=== PATIENT | male | born 1975 | race Caucasian/White ===

== ENCOUNTER 2019-08-22 19:42 | Inpatient (IN) | payer OTHER ==
[2019-08-22 20:37] LABS: Absolute Lymphocytes (CBC) 1.9 K/uL (0.7-4.9); Basophils % 0.5 % (0-1.3); Hematocrit 46.2 % (39.6-49.0); Lymphocytes % 16.5 % (15.3-44.8); Protime INR 1.09; RBC Red Blood Cell Count 5.16 M/uL (4.33-5.43)
--- NOTE | 2019-08-22 20:53 | RAD REPORT ---
EXAM DESCRIPTION: RAD - Chest Single View - 08/22/2019 8:37 pm CLINICAL HISTORY: CHEST PAIN Chest pain. COMPARISON: No comparisons FINDINGS: Portable technique limits examination quality. The lungs are grossly clear. The heart is normal in size. No displaced fractures. IMPRESSION: No acute intrathoracic process suspected.
[2019-08-22 20:58] LABS: Albumin 3.9 g/dL (3.4-5.0); Bilirubin Direct 0.2 mg/dL (0-0.2); Bilirubin Total 0.7 mg/dL (0.2-1.0); Magnesium 2.3 mg/dL (1.8-2.4); Potassium 3.8 mmol/L (3.5-5.1); Protein, Total 7.5 g/dL (6.4-8.2)
[2019-08-22 21:06] LABS: Troponin (Emerg Dept Use Only) 13.8 ng/mL (0.0-0.045)
--- NOTE | 2019-08-22 21:25 | ER ---
Nurse's Notes [facility] Name: Aubrey Vázquez Age: 43 yrs Sex: Male : 1975 Arrival Date: 08/22/2019 Time: 19:49 Bed 26 Private MD: Diagnosis: Non-ST elevation (NSTEMI) myocardial infarction Presentation: 08/21 20:07 Acuity: KIYA 3 sg 20:07 Chief complaint: Patient states: Wendy been having this chest pain for about a week, It sg worsens when I eat so i think its like reflux related, My gf told me to get this checked out if its my heart. I think maybe its a hiatal hernia or something, I dont know. Coronavirus screen: Proceed with normal triage. Initial Sepsis Screen: Does the patient meet any 2 criteria? HR > 90 bpm. Does the patient have a suspected source of infection? No. Patient's initial sepsis screen is negative. Onset of symptoms was August 15, 2019. Care prior to arrival: None. Transition of care: patient was not received from another setting of care. 20:07 Method Of Arrival: Ambulatory sg 23:17 Chief complaint: Patient states: CP for 1 week, severe last night. Coronavirus screen: ll1 Proceed with normal triage. Patient denies a cough. Patient denies shortness of breath or difficulty breathing. Patient denies measured and/or subjective temperature greater than 100.4F prior to today's visit. Patient denies travel on a cruise ship or to a country the [facility] currently lists as an affected area. Patient denies contact with known and/or suspected case of COVID-19. Ebola Screen: Patient denies travel to an Ebola-affected area in the 21 days before illness onset. Initial Sepsis Screen: Does the patient meet any 2 criteria? HR > 90 bpm. No. Patient's initial sepsis screen is negative. Does the patient have a suspected source of infection? No. Patient's initial sepsis screen is negative. Risk Assessment: Do you want to hurt yourself or someone else? Patient reports no desire to harm self or others. Onset of symptoms was August 15, 2019. 23:17 Method Of Arrival: Ambulatory ll1 Historical: - Allergies: 20:12 No Known Allergies; sg - Home Meds: 20:12 Metformin Oral [Active]; Glimepiride Oral [Active]; Lisinopril Oral [Active]; sg atorvastatin oral oral [Active]; - PMHx: 20:12 Diabetes - NIDDM; Hypertension; Hyperlipidemia; sg - PSHx: 20:12 None; sg - Immunization history:: Adult Immunizations up to date. - Social history:: Smoking status: Patient denies any tobacco usage or history of. Screenin:10 Abuse screen: Denies threats or abuse. Nutritional screening: No deficits noted. ll1 Tuberculosis screening: No symptoms or risk factors identified. Fall Risk None identified. IV access (20 points). Total [place] Fall Scale indicates No Risk (0-24 pts). Assessment: 20:30 General: Appears in no apparent distress. Behavior is calm, cooperative. Pain: ll1 Complains of pain in chest Pain does not radiate. Pain currently is 4 out of 10 on a pain scale. Quality of pain is described as pressure, "discomfort" Pain began 1 week ago intermittently. Pain got severe last night. Neuro: No deficits noted. Cardiovascular: Reports chest pain, Heart tones S1 S2 Capillary refill < 3 seconds Clubbing of nail beds is absent JVD is absent Patient's skin is warm and dry. Rhythm is sinus tachycardia Chest pain is described as vague, mild, quality is pressure, began 1 week episodes are intermittent. Respiratory: No deficits noted. Airway is patent Trachea midline Respiratory effort is even, unlabored, Respiratory pattern is regular, symmetrical, Breath sounds are clear bilaterally. Denies cough, shortness of breath. GI: No deficits noted. 21:30 Reassessment: Patient appears in no apparent distress at this time. No changes from ll1 previously documented assessment. Patient and/or family updated on plan of care and expected duration. Pain level reassessed. Patient is alert, oriented x 3, equal unlabored respirations, skin warm/dry/pink. 22:30 Reassessment: Patient appears in no apparent distress at this time. No changes from ll1 previously documented assessment. Patient and/or family updated on plan of care and expected duration. Pain level reassessed. Patient is alert, oriented x 3, equal unlabored respirations, skin warm/dry/pink. 23:30 Reassessment: Patient appears in no apparent distress at this time. No changes from ll1 previously documented assessment. Patient and/or family updated on plan of care and expected duration. Pain level reassessed. Patient is alert, oriented x 3, equal unlabored respirations, skin warm/dry/pink. Vital Signs: 21:30 BP 155 / 82; Pulse 114; Resp 18; Pulse Ox 100% ; ll1 21:46 Weight 103.87 kg (R); ll1 21:58 BP 155 / 82; Pulse 110; Resp 19; Pulse Ox 100% ; ll1 22:58 BP 135 / 78; Pulse 115; Resp 18; Pulse Ox 100% ; ll1 23:09 BP 130 / 74; Pulse 102; Resp 17; ll1 23:28 BP 124 / 73; Pulse 95; Resp 17; Pulse Ox 96% ; Pain 0/10; ll1 23:37 BP 115 / 63; Pulse 91; Resp 18; Temp 98.3; Pulse Ox 97% ; ll1 ED Course: 19:49 Patient arrived in ED. cl3 20:01 Miguel Cervantes, LING is Primary Nurse. ll1 20:04 Parrish Mckenna MD is Attending Physician. tw4 20:08 Triage completed. sg 20:13 Arm band placed on. sg 20:30 Inserted saline lock: 20 gauge in left antecubital area, using aseptic technique. Blood ll1 collected. 20:37 XRAY Chest (1 view) In Process Unspecified. EDMS 21:05 Notified ED physician of a critical lab result(s). Troponin 13.8. lp1 21:24 Juanita Gonsales MD is Hospitalizing Provider. tw4 21:30 Patient has correct armband on for positive identification. Bed in low position. Call ll1 light in reach. Side rails up X 1. vice president of sales on. Pulse ox on. NIBP on. 23:17 No provider procedures requiring assistance completed. Patient admitted, IV remains in ll1 place. Patient maintains SpO2 saturation greater than 95% on room air. Administered Medications: 21:39 CANCELLED (order changed): GI Cocktail without - (Maalox Suspension 30 ml, sg Lidocaine Liquid 2 % 15 ml) PO once 21:57 Drug: Lovenox 1 mg/kg Route: Sub-Q; Site: left lower abdomen; ll1 23:30 Follow up: Response: No adverse reaction ll1 21:58 Drug: PlaVIX 75 mg Route: PO; ll1 23:29 Follow up: Response: No adverse reaction ll1 22:58 Drug: Metoprolol 5 mg Route: IVP; Site: left antecubital; ll1 23:09 Drug: Metoprolol 5 mg Route: IVP; Site: left antecubital; ll1 23:20 Drug: Metoprolol 5 mg Route: IVP; Site: left antecubital; ll1 23:29 Follow up: Response: No adverse reaction ll1 Outcome: 21:25 Decision to Hospitalize by Provider. tw4 23:17 Condition: stable ll1 23:17 Instructed on the need for admit. 23:40 Admitted to ICU accompanied by nurse, room ICU 6, on monitor, Report called to Gregory ll1 23:52 Patient left the ED. sg Signatures: Dispatcher [employer] EDMS Richie Montalvo RN RN sg Cecilia Carrion RN RN lp1 Parrish Mckenna MD MD tw4 Gilda Cervantes cl3 Miguel Cervantes RN RN ll1 Corrections: (The following items were deleted from the chart) 23:48 23:17 Admitted to ICU accompanied by nurse, room ICU 6, on monitor, ll1 [facility] 08/22 00:06 08/21 23:17 Admitted to ICU accompanied by nurse, room ICU 6, on monitor, Report called ll1 to Gregory ll1
--- NOTE | 2019-08-22 21:25 | EDPHYS ---
Physician Documentation [facility] Name: Aubrey Vázquez Age: 43 yrs Sex: Male : 1975 Arrival Date: 08/22/2019 Time: 19:49 Bed 26 Private MD: ED Physician Parrish Mckenna HPI: 08/21 21:21 This 43 yrs old Male presents to ER via Unassigned with complaints of Chest tw4 Pain, Chest Congestion. 22:32 The patient or guardian reports chest pain that is located primarily in the anterior tw4 chest wall. Onset: 1 week(s) ago, and became worse today, and became persistent. The pain does not radiate. Associated signs and symptoms: The patient has no apparent associated signs or symptoms. The chest pain is described as dull. Modifying factors: The symptoms are alleviated by nothing. the symptoms are aggravated by nothing. The patient has not experienced similar symptoms in the past. Historical: - Allergies: 20:12 No Known Allergies; sg - Home Meds: 20:12 Metformin Oral [Active]; Glimepiride Oral [Active]; Lisinopril Oral [Active]; sg atorvastatin oral oral [Active]; - PMHx: 20:12 Diabetes - NIDDM; Hypertension; Hyperlipidemia; sg - PSHx: 20:12 None; sg - Immunization history:: Adult Immunizations up to date. - Social history:: Smoking status: Patient denies any tobacco usage or history of. ROS: 22:32 Constitutional: Negative for fever, chills, and weight loss, Eyes: Negative for injury, tw4 pain, redness, and discharge, Neck: Negative for injury, pain, and swelling, Respiratory: Negative for shortness of breath, cough, wheezing, and pleuritic chest pain, Abdomen/GI: Negative for abdominal pain, nausea, vomiting, diarrhea, and constipation, Back: Negative for injury and pain, MS/Extremity: Negative for injury and deformity, Skin: Negative for injury, rash, and discoloration, Neuro: Negative for headache, weakness, numbness, tingling, and seizure. 22:32 Cardiovascular: Positive for chest pain, Negative for edema, orthopnea, palpitations, paroxysmal nocturnal dyspnea. Exam: 22:32 Constitutional: This is a well developed, well nourished patient who is awake, alert, tw4 and in no acute distress. Head/Face: Normocephalic, atraumatic. Chest/axilla: Normal chest wall appearance and motion. Nontender with no deformity. No lesions are appreciated. Cardiovascular: Regular rate and rhythm with a normal S1 and S2. No gallops, murmurs, or rubs. Normal PMI, no JVD. No pulse deficits. Respiratory: Lungs have equal breath sounds bilaterally, clear to auscultation and percussion. No rales, rhonchi or wheezes noted. No increased work of breathing, no retractions or nasal flaring. Abdomen/GI: Soft, non-tender, with normal bowel sounds. No distension or tympany. No guarding or rebound. No evidence of tenderness throughout. Back: No spinal tenderness. No costovertebral tenderness. Full range of motion. MS/ Extremity: Pulses equal, no cyanosis. Neurovascular intact. Full, normal range of motion. Neuro: Awake and alert, GCS 15, oriented to person, place, time, and situation. Cranial nerves II-XII grossly intact. Motor strength 5/5 in all extremities. Sensory grossly intact. Cerebellar exam normal. Normal gait. Vital Signs: 21:30 BP 155 / 82; Pulse 114; Resp 18; Pulse Ox 100% ; ll1 21:46 Weight 103.87 kg (R); ll1 21:58 BP 155 / 82; Pulse 110; Resp 19; Pulse Ox 100% ; ll1 22:58 BP 135 / 78; Pulse 115; Resp 18; Pulse Ox 100% ; ll1 23:09 BP 130 / 74; Pulse 102; Resp 17; ll1 23:28 BP 124 / 73; Pulse 95; Resp 17; Pulse Ox 96% ; Pain 0/10; ll1 23:37 BP 115 / 63; Pulse 91; Resp 18; Temp 98.3; Pulse Ox 97% ; ll1 MDM: 20:04 Patient medically screened. tw4 22:32 Differential diagnosis: pulmonary embolus, unstable angina. Data reviewed: vital signs, tw4 nurses notes. Data interpreted: Pulse oximetry: Interpretation: normal. Counseling: I had a detailed discussion with the patient and/or guardian regarding: the historical points, exam findings, and any diagnostic results supporting the discharge/admit diagnosis. 22:43 Differential diagnosis: abnormal EKG, acute myocardial infarction, acute pericarditis, tw4 coronary artery disease esophagitis, gastritis, gastroesophageal reflux disease (GERD). HEART Score: History: Moderately Suspicious (1), ECG: Non specific repolarization disturbance / LBTB / PM (1), Age: < or = 45 years (0), Risk Factors: > or = 3 Risk factors for atherosclerotic disease (2), [Hypertension] [DM] [+ Family HX] Troponin: > or = 3 x Normal Limit (2), Total Score = 6. Test interpretation: by ED physician or midlevel provider: ECG, plain radiologic studies. 22:47 Physician consultation: Juanita Gonsales MD regarding admission, to the telemetry unit. tw and will see patient in ED, in inpatient room. ED course: D/W Dr Mcconnell manager respiratory care will place Plavix and Lovenox and pt will received catheterization the am. 08/21 20:04 Order name: Basic Metabolic Panel; Complete Time: 21:30 [facility] 08/21 21:30 Interpretation: Normal except: GLUC 240; GFR 79. [facility] 08/21 20:04 Order name: CBC with Diff; Complete Time: 21:30 [facility] 08/21 21:30 Interpretation: Normal except: WBC 11.6. [facility] 08/21 20:04 Order name: LFT's; Complete Time: 21:30 [facility] 08/21 21:30 Interpretation: Normal except: AST 78; GLOB 3.6. 08/21 20:04 Order name: Magnesium; Complete Time: 21:20 [facility] 08/21 20:04 Order name: NT PRO-BNP; Complete Time: 21:30 [facility] 08/21 21:30 Interpretation: Abnormal: NT PRO-BNP 1997. 08/21 20:04 Order name: PT-INR; Complete Time: 21:30 [facility] 08/21 21:30 Interpretation: Within normal limits: PT 12.8. [facility] 08/21 20:04 Order name: Troponin (emerg Dept Use Only); Complete Time: 21:20 [facility] 08/21 21:31 Interpretation: Abnormal: TROPED 13.80. 08/21 21:30 Order name: Creatine Phosphokinase [facility] 08/21 21:30 Order name: Creatine Phosphokinase [facility] 08/21 21:30 Order name: Creatine Phosphokinase [facility] 08/21 21:30 Order name: Creatine Phosphokinase [facility] 08/21 21:30 Order name: Lipid Profile [facility] 08/21 21:30 Order name: Lipid Profile [facility] 08/21 21:30 Order name: Troponin I [facility] 08/21 20:04 Order name: XRAY Chest (1 view); Complete Time: 21:20 tw4 08/21 20:04 Order name: EKG; Complete Time: 20:05 tw4 08/21 20:04 Order name: Cardiac monitoring; Complete Time: 20:30 tw4 08/21 21:30 Order name: Troponin I [facility] 08/21 21:30 Order name: Troponin I [facility] 08/21 21:31 Order name: CONS Physician Consult [facility] 08/21 21:31 Order name: Heart Healthy [facility] 08/21 21:31 Order name: Echo with Doppler [facility] 08/21 21:31 Order name: EKG Electrocardiogram [facility] 08/21 21:31 Order name: EKG Electrocardiogram [facility] 08/21 21:31 Order name: EKG Electrocardiogram [facility] 08/21 21:31 Order name: EKG Electrocardiogram [facility] 08/21 20:04 Order name: EKG - Nurse/Tech; Complete Time: 20:30 tw4 08/21 20:04 Order name: IV Saline Lock; Complete Time: 20:06 tw4 08/21 20:04 Order name: Labs collected and sent; Complete Time: 20:06 tw4 08/21 20:04 Order name: O2 Per Protocol; Complete Time: 20:06 tw4 08/21 20:04 Order name: O2 Sat Monitoring; Complete Time: 20:06 4 EC:32 Rate is 109 beats/min. Rhythm is regular. Left axis deviation noted. [place] interval is tw4 normal. QRS interval is normal. QT interval is normal. No Q waves. T waves are Inverted in leads I, aVL. No ST changes noted. Interpreted by me. Reviewed by me. Administered Medications: 21:39 CANCELLED (order changed): GI Cocktail without - (Maalox Suspension 30 ml, sg Lidocaine Liquid 2 % 15 ml) PO once 21:57 Drug: Lovenox 1 mg/kg Route: Sub-Q; Site: left lower abdomen; ll1 23:30 Follow up: Response: No adverse reaction ll1 21:58 Drug: PlaVIX 75 mg Route: PO; ll1 23:29 Follow up: Response: No adverse reaction ll1 22:58 Drug: Metoprolol 5 mg Route: IVP; Site: left antecubital; ll1 23:09 Drug: Metoprolol 5 mg Route: IVP; Site: left antecubital; ll1 23:20 Drug: Metoprolol 5 mg Route: IVP; Site: left antecubital; ll1 23:29 Follow up: Response: No adverse reaction ll1 Disposition: 08/22/19 21:25 Hospitalization ordered by Juanita Gonsales for Inpatient Admission. Preliminary diagnosis is Non-ST elevation (NSTEMI) myocardial infarction. - Bed requested for Intensive Care Unit. - Status is Inpatient Admission. sg - Condition is Fair. - Problem is new. - Symptoms are unchanged. Signatures: Dispatcher [employer] EDRichie Epperson RN RN sg Sadia Bazzi RN RN Parrish Mckenna MD MD 4 Miguel Cervantes RN RN ll1 Corrections: (The following items were deleted from the chart) 21:39 20:45 GI Cocktail without - (Maalox 30 ml, Lidocaine 15 ml) PO once ordered. sg tw4 21:59 21:25 Hospitalization Ordered by Juanita Gonsales MD for Inpatient Admission. Preliminary cg diagnosis is Non-ST elevation (NSTEMI) myocardial infarction. Bed requested for Telemetry/MedSurg (Inpatient). Status is Inpatient Admission. Condition is Fair. Problem is new. Symptoms are unchanged. tw4 23:52 21:59 08/22/2019 21:25 Hospitalization Ordered by Juanita Gonsales MD for Inpatient sg Admission. Preliminary diagnosis is Non-ST elevation (NSTEMI) myocardial infarction. Bed requested for Intensive Care Unit. Status is Inpatient Admission. Condition is Fair. Problem is new. Symptoms are unchanged. cg
[2019-08-22] MEDS ORDERED: ACETAMINOPHEN 500 MG TAB PO PRN (21:26)
[2019-08-22] MEDS ORDERED: ONDANSETRON 4 MG/2 ML VIAL IV PRN (21:26)
[2019-08-22] MEDS ORDERED: MORPHINE 4 MG/ML SYR IV PRN (21:26)
[2019-08-22] MEDS ORDERED: METOPROLOL TARTRATE 5 MG/5 ML INJ IV ONE (23:04)
[2019-08-23 01:24] VITALS: BMI 33.1
[2019-08-23] MEDS: ENOXAPARIN 100 MG/ML SYR SQ SCH ×3 (02:00→14:00)
[2019-08-23] MEDS: TEMAZEPAM 15 MG CAP PO PRN ×2 (02:11→21:15)
[2019-08-23 05:54] LABS: Creatine Phosphokinase 279 U/L (39-308); HDL Cholesterol 29 mg/dL (40-60)
[2019-08-23 05:57] LABS: Troponin I 8.65 ng/mL (0.0-0.045)
[2019-08-23 06:07] LABS: LDL, Direct 77 mg/dL (100-129)
[2019-08-23] MEDS ORDERED: HEPA 1000U/500MLS 1,000 UNIT/500 ML BAG IV ONE (06:45)
--- NOTE | 2019-08-23 07:19 | P.HP ---
Certification for Inpatient Patient admitted to: Inpatient With expected LOS: >2 Midnights Patient will require the following post-hospital care: None Practitioner: I am a practitioner with admitting privileges, knowledge of patient current condition, hospital course, and medical plan of care. Services: Services provided to patient in accordance with Admission requirements found in Title 42 Section 412.3 of the Code of Federal Regulations Patient History Date of Service: 08/22/19 Reason for admission: Acute myocardial infarction History of Present Illness: Patient is a 43-year-old gentleman came into the hospital with chest discomfort. His pain is been present for the last 3-4 days. Initially thought it may be hiatal hernia as his mother suffer from a hiatal hernia. His father also had heart disease and had a heart attack at 44yo which required bypass surgery. Patient's chest pain was improving so his girlfriend made him come into the em ergency room. In the emergency room, patient's troponins came back significantly elevated. Patient had no acute ST elevation changes. Patient was started on anti coagulation as well as anti-platelet therapy and statin therapy. Patient is given Lopressor. Patient was admitted to the hospital after speak with Cardiology and will need cardiac catheterization. Allergies No Known Allergies Allergy (Verified 08/23/19 00:11) Home Medications: Atorvastatin Calcium [Lipitor*] 10 mg PO BEDTIME 08/23/19 Glimepiride 4 mg PO DAILY 08/23/19 Metformin HCl 1,000 mg PO DAILY 08/23/19 lisinopriL [Lisinopril] 10 mg PO DAILY 08/23/19 - Past Medical/Surgical History Has patient received pneumonia vaccine in the past: No Diabetic: Yes -: NIDDM -: HTN -: hyperlipidemia Past Surgical History: Patient denies surgical history - Family History Father Family History: Reviewed- Non-Contributory - Social History Smoking Status: Never smoker Alcohol use: Yes CD- Drugs: No Caffeine use: Yes Place of Residence: Home Review of Systems 10-point ROS is otherwise unremarkable Physical Examination - Vital Signs Temperature: 98.3 F Blood Pressure: 114/87 Pulse: 95 Respirations: 19 Pulse Ox (%): 96 - Physical Exam General: Alert, In no apparent distress, Oriented x3 HEENT: Atraumatic, PERRLA, Mucous membr. moist/pink, EOMI, Sclerae nonicteric Neck: Supple, 2+ carotid pulse no bruit, No LAD, Without JVD or thyroid abnormality Respiratory: Clear to auscultation bilaterally, Normal air movement Cardiovascular: Regular rate/rhythm, Normal S1 S2, No murmurs Gastrointestinal: Normal bowel sounds, Soft and benign, Non-distended, No tend erness Musculoskeletal: No clubbing, No swelling, No tenderness Integumentary: No rashes Neurological: Normal gait, Normal speech, Normal strength at 5/5 x4 extr, Normal tone, Sensation intact, Cranial nerves 3-12 intact, Normal affect Lymphatics: No axilla or inguinal lymphadenopathy - Studies Laboratory Data (last 24 hrs) 08/22/19 19:30: PT 12.8 H, INR 1.09 08/22/19 19:30: WBC 11.6 H, Hgb 15.8, Hct 46.2, Plt Count 208 08/22/19 19:30: Sodium 140, Potassium 3.8, BUN 16, Creatinine 1.02, Glucose 240 H, Magnesium 2.3, Total Bilirubin 0.7, AST 78 H, ALT 69, Alkaline Phosphatase 66 Assessment & Plan - Problems (Diagnosis) (1) Coronary syndrome, acute Current Visit: Yes Status: Acute (2) Type 2 diabetes mellitus Current Visit: Yes Status: Acute (3) History of hypertension Current Visit: Yes Status: Acute (4) Family history of cardiac disorder in father Current Visit: Yes Status: Acute - Plan 1. Serial troponins and EKG 2. Appreciate Cardiology consultation; patient scheduled for cardiac catheterization in the morning 3. Echocardiogram in the morning as well 4. Anti-platelet therapy, anti coagulation, beta-sera, statin, and O2 as needed; if chest pain persistent than nitropaste 5. IV morphine for pain 6. Nitro sublingual as needed 7. Hemoglobin A1c in the morning 8. Strict blood pressure control 9. GI and DVT prophylaxis Discharge Plan: Home Plan to discharge in: Greater than 2 days - Advance Directives Does patient have a Living Will: No Does patient have a Durable POA for Healthcare: No - Code Status/Comfort Care Code Status Assessed: Yes Code Status: Full Code Critical Care: Yes Time Spent Managing PTS Care (In Minutes): 45
--- NOTE | 2019-08-23 07:24 | P.PN ---
Subjective Date of Service: 08/23/19 Patient still having occasional chest discomfort. Scheduled for heart catheterization this morning. Continue with anticoagulation, anti-platelet therapy, beta sera, and statin therapy as well. Patient will remain NPO as well. Review of Systems 10-point ROS is otherwise unremarkable Physical Examination - Vital Signs Temperature: 98.3 F Blood Pressure: 114/87 Pulse: 95 Respirations: 19 Pulse Ox (%): 96 - Physical Exam General: Alert, In no apparent distress, Oriented x3 Respiratory: Clear to auscultation bilaterally, Normal air movement Cardiovascular: Regular rate/rhythm, Normal S1 S2, No murmurs Gastrointestinal: Normal bowel sounds, Soft and benign, Non-distended, No tenderness, No masses, No rebound Musculoskeletal: No clubbing, No swelling, No erythema Neurological: Normal gait, Normal speech, Normal strength at 5/5 x4 extr, Normal tone, Sensation intact, Cranial nerves 3-12 intact - Studies Laboratory Data (last 24 hrs) 08/22/19 19:30: PT 12.8 H, INR 1.09 08/22/19 19:30: WBC 11.6 H, Hgb 15.8, Hct 46.2, Plt Count 208 08/22/19 19:30: Sodium 140, Potassium 3.8, BUN 16, Creatinine 1.02, Glucose 240 H, Magnesium 2.3, Total Bilirubin 0.7, AST 78 H, ALT 69, Alkaline Phosphatase 66 Assessment & Plan - Problems (Diagnosis) (1) Coronary syndrome, acute Current Visit: Yes Status: Acute (2) Type 2 diabetes mellitus Current Visit: Yes Status: Acute (3) History of hypertension Current Visit: Yes Status: Acute (4) Family history of cardiac disorder in father Current Visit: Yes Status: Acute - Plan Continue with current plan of care as mentioned below 1. Troponins are trending downward at this time 2. Appreciate Cardiology consultation; patient scheduled for cardiac catheterization today 3. Echocardiogram this morning as well 4. Continue with anti-platelet therapy, anticoagulation, beta-sera, statin, and O2 as needed; if chest pain persistent than nitropaste 5. IV morphine for pain 6. Nitro sublingual as needed 7. Hemoglobin A1c pending 8. Strict blood pressure control 9. GI and DVT prophylaxis Discharge Plan: Home Plan to discharge in: Greater than 2 days - Advance Directives Does patient have a Living Will: No Does patient have a Durable POA for Healthcare: No - Code Status/Comfort Care Code Status: Full Code Critical Care: Yes Time Spent Managing PTS Care (In Minutes): 31
[2019-08-23] MEDS ORDERED: NITROGLYCERIN 100 MCG/ML SYR (for cath lab use only) IV ONE (08:19)
[2019-08-23] MEDS ORDERED: NITROGLYCERIN/D5W 25 MG/250 ML BTL IV ONE (08:19)
[2019-08-23] MEDS ORDERED: FENTANYL CITR 100 MCG/2 ML ONE (08:19)
[2019-08-23] MEDS ORDERED: ATROPINE SULF 1 MG/10 ML SYR IV ONE (08:19)
[2019-08-23] MEDS ORDERED: MIDAZOLAM HCL 2 MG/2 ML INJ ONE ×2 (08:19→10:55)
[2019-08-23] MEDS ORDERED: NA CHLORIDE 0.9% 50 ML ONE (08:19)
[2019-08-23] MEDS ORDERED: METOPROLOL TAR 50 MG TAB PO SCH (09:00)
[2019-08-23] MEDS ORDERED: ASPIRIN 325 MG TAB PO SCH (09:00)
[2019-08-23] MEDS ORDERED: CLOPIDOGREL 75 MG TABLET PO SCH (09:00)
[2019-08-23] MEDS ORDERED: NA CHLORIDE 0.9% 500 ML ONE (10:46)
--- NOTE | 2019-08-23 10:48 | EKG ---
Test Date: 2019-08-22 Test Time: 20:29:08 Job Placement Specialist: DASHAWN MEASUREMENT RESULTS: Intervals: Rate: 109 ND: 148 QRSD: 92 QT: 340 QTc: 457 [place]: P: 44 ND: 148 QRS: -46 T: 74 INTERPRETIVE STATEMENTS: Sinus tachycardia Left axis deviation Anteroseptal infarct, age undetermined Abnormal ECG No previous ECG available for comparison Electronically Signed On 08-23-19 10:47:15 CDT by Phoenix Torres
[2019-08-23] MEDS ORDERED: ASPIRIN 325 MG TAB ONE (11:33)
[2019-08-23] MEDS ORDERED: PRASUGREL (EFFIENT) 10 MG TAB ONE (11:34)
[2019-08-23] MEDS ORDERED: DIAZEPAM 5 MG TABLET PO PRN (12:25)
[2019-08-23] MEDS ORDERED: MORPHINE 4 MG/ML SYR IV PRN (12:26)
[2019-08-23] MEDS ORDERED: NITROGLYCERIN 0.4 MG/TAB SL PRN (13:00)
[2019-08-23] MEDS ORDERED: ACETAMINOPHEN 325 MG TABLET PO PRN (13:00)
[2019-08-23] MEDS ORDERED: NA CHLORIDE 0.9% 1,000 ML IV SCH (13:00)
[2019-08-23 15:47] VITALS: O2SAT 98
[2019-08-23] MEDS ORDERED: ATORVASTATIN 20 MG TAB PO SCH (21:00)
[2019-08-23] MEDS ORDERED: ATORVASTATIN 80 MG TAB PO SCH (21:00)
--- NOTE | 2019-08-23 22:00 | OP ---
Date of Procedure: 08/23/2019 Surgeon: Phoenix Torres MD Jewelry Sorter: Roxy Loyola. The patient will be going back to the ICU for overnight stay. Hopefully, he will be going home олег brar. He is already on lisinopril, metformin, glimepiride, and Lipitor. We will have his metformin h eld for 48 hours. We will add Plavix to his regimen and we will add a low-dose beta-sera before heather webb goes home. Procedure: Urgent left heart catheterization, selective coronary arteriogram, and primary stent of t he proximal LAD. Indication: Non-ST elevation myocardial infarction. History Of Present Illness: Mr. Vázquez is a 43-year-old male, has a history of diabetes, strong fami ly history of heart disease, dyslipidemia, and hypertension. Has recently moved from [place]. Came in with substernal chest pressure radiating to the back and arm with nausea, diaphoresis, and sh ortness of breath. Symptoms intermittent for a week, but were prolonged last night on 08/22/2019. Heather webb was admitted, was found to have a troponin of 13.80. EKG showed anterior ischemic changes. Description Of Procedure: He was brought to the oil field laborer rather urgently, prepped and draped in the routine sterile fashion. He was given Versed for sedation. A 6-Yemeni sheath was introduced in the right common femoral artery successfully. Angio-Seal was used to close the case. Angiography there was normal. Jaime catheter left and right were used to cannulate the left main and right main resp ectively. His RCA was normal. His circumflex had about a 50% to 60% obtuse marginal lesion, but he had a 95% very proximal LAD with what appeared to be thrombus and calcification. A [place] wire was u sed to cross the lesion after cannulating the lesion with an XB-LAD 3.5 guide. Double 6-Yemeni. Fol lowing the wire, a 3.5 x 20 Synergy stent was introduced, it was positioned right at the ostium of th e LAD to cover the proximal LAD, the ostium all the way across the septal perforators, but before the first diagonal. He has 0% residual. There were no acute closure or thrombosis or dissection. The patient tolerated the procedure very well. There were no complications. Blood loss was 5 mL. The p atient received aspirin, Effient, and Angiomax during the procedure. Anesthesia: Total conscious sedation was 45 minutes. Final Diagnoses: Left anterior descending status post acute non-ST elevation myocardial infarction, status post successful proximal left anterior descending primary stent. Has other disease in the obt use marginal that is [id number]-[id number] that we will treat medically. FRANK/KARO Voice ID: [id number] Report ID: [id number]
--- NOTE | 2019-08-23 23:45 | CON ---
Date of Consultation: 08/23/[address] Gonsales's service on 08/22/2019. I saw the patient on 08/23/2019. Reason For Consultation: Iay-AK-nfyvkyxim myocardial infarction. History Of Present Illness: Mr. Vázquez is a 43-year-old male who just recently moved from [facility]. Has a history of diabetes, hypertension, and dyslipidemia. Has been having midsternal chest pre ssure, indigestion like, radiating to the upper chest without any nausea or vomiting, but has had keesha phoresis and shortness of breath. His symptoms lasted about an hour and a half yesterday. Finally c roseanne to the emergency room, was found to have an EKG showing possible anterior ischemia. His troponin was 13.8. His triglycerides were 557. His white count was 11. Glucose was 240. Past Medical History: As stated above. Allergies: NONE. Review of Systems: Negative. Social History: Negative for tobacco, alcohol, or drugs. Family History: Positive for heart disease. His dad had bypass surgery in his 40s. Home Medications: Lipitor, glimepiride, metformin, and lisinopril. Physical Examination: Vital Signs: Stable. He was afebrile. HEENT: Negative. Neck: Supple. No bruit. Chest: Clear. Cardiac: Revealed a regular rhythm and rate. No murmurs, gallops, or rubs. Abdomen: Benign. Extremities: Revealed no clubbing, cyanosis, or edema. Diagnostic Data: As stated earlier. Impression And Plan: Qnc-AK-dvkbphtqi myocardial infarction. I am going to take the patient urgentl y to the mini lab operator today. He needs to have a left heart catheterization to define his coronary anatom y and intervene as appropriate. Patient understands the risks and the benefits of the procedure and he agrees to proceed. Patient is on aspirin, Lovenox, lisinopril, metformin, glimepiride, and Lipito r. We will make appropriate changes depending on what the catheterization sees. His blood pressure is controlled. His diabetes is controlled. His dyslipidemia is poorly controlled. We may have to g o up on the Lipitor dose and consider Tricor therapy as well. NB/MODL Voice ID: [id number] Report ID: [id number]
--- NOTE | 2019-08-24 01:49 | P.PN ---
Date of Service: 08/23/19 Addendum to a.m. note: Subjective: Patient required LAD stent. Patient had almost complete occlusion of the proximal LAD. Patient also with additional lesion of the obtuse marginal. This will be managed medically. Patient will possibly be discharged tomorrow morning pending cardiology evaluation. Physical Examination Vitals: Afebrile vital signs are stable Physical exam is unchanged Diagnostic data has been reviewed ASST: 1. Coronary artery disease status post LAD stent 2. Type 2 diabetes PLAN: 1. Serial troponins and EKG 2. Appreciate Cardiology consultation 3. Anti-platelet therapy, anti coagulation, beta-sera, statin, and O2 as needed 4. Dc in a.m. if Cardiology agreeable
--- NOTE | 2019-08-24 01:52 | P.DS ---
Discharge Date: 08/24/19 Disposition: ROUTINE DISCHARGE Discharge Condition: GOOD Reason for Admission: Acute myocardial infarction Consultations: Cardiology - Problems (1) Coronary syndrome, acute Current Visit: Yes Status: Acute (2) Type 2 diabetes mellitus Current Visit: Yes Status: Acute (3) History of hypertension Current Visit: Yes Status: Acute (4) Family history of cardiac disorder in father Current Visit: Yes Status: Acute Brief History of Present Illness: Patient is a 43-year-old gentleman came into the hospital with chest discomfort. His pain is been present for the last 3-4 days. Initially thought it may be hiatal hernia as his mother suffer from a hiatal hernia. His father also had heart disease and had a heart attack at 44yo which required bypass surgery. Patient's chest pain was improving so his girlfriend made him come into the emergency room. In the emergency room, patient's troponins came back significantly elevated. Patient had no acute ST elevation changes. Patient was started on anti coagulation as well as anti-platelet therapy and statin therapy. Patient is given Lopressor. Patient was admitted to the hospital after speak with Cardiology and will need cardiac catheterization. Hospital Course: If patient was having an acute myocardial infarction-non ST-elevation myocardial infarction. Patient was taken to the cardiac catheterization lab per Cardiology. Patient was found have a 95% lad lesion proximally which was stented. Patient also had a 50-60% lesion in the obtuse marginal branch of this left circumflex. This will be monitored closely as an outpatient. Patient will continue on cardiac meds and will need strict diabetes control. Will recommend resuming activity including possibly cardiac rehab. At this time, patient is stable for discharge with outpatient follow-up with Cardiology in 1 week. Return to the ER if patient has chest pain that is recurrent. Vital Signs/Physical Exam: Temp Pulse Resp BP Pulse Ox 97.6 F 89 15 113/77 95 08/24/19 01:00 08/24/19 01:00 08/23/19 22:00 08/24/19 01:00 08/24/19 01:00 General: Alert, In no apparent distress, Oriented x3 Laboratory Data at Discharge: WBC 11.6 K/uL (4.3-10.9) H 08/22/19 19:30 Hgb 15.8 g/dL (13.6-17.9) 08/22/19 19:30 Hct 46.2 % (39.6-49.0) 08/22/19 19:30 Plt Count 208 K/uL (152-406) 08/22/19 19:30 PT 12.8 SECONDS (9.5-12.5) H 08/22/19 19:30 INR 1.09 08/22/19 19:30 Sodium 140 mmol/L (136-145) 08/22/19 19:30 Potassium 3.8 mmol/L (3.5-5.1) 08/22/19 19:30 BUN 16 mg/dL (7-18) 08/22/19 19:30 Creatinine 1.02 mg/dL (0.55-1.3) 08/22/19 19:30 Glucose 240 mg/dL (74-106) H 08/22/19 19:30 Magnesium 2.3 mg/dL (1.8-2.4) 08/22/19 19:30 Total Bilirubin 0.7 mg/dL (0.2-1.0) 08/22/19 19:30 AST 78 U/L (15-37) H 08/22/19 19:30 ALT 69 U/L (12-78) 08/22/19 19:30 Alkaline Phosphatase 66 U/L (45-117) 08/22/19 19:30 Troponin I 8.65 ng/mL (0.0-0.045) H* D 08/23/19 04:55 Triglycerides 557 mg/dL (<150) H 08/23/19 04:55 Cholesterol 134 mg/dL (<200) 08/23/19 04:55 LDL Cholesterol Direct 77 mg/dL (100-129) L 08/23/19 04:55 HDL Cholesterol 29 mg/dL (40-60) L 08/23/19 04:55 Cholesterol/HDL Ratio 4.62 08/23/19 04:55 Home Medications: Glimepiride 4 mg PO DAILY 08/23/19 Metformin HCl 1,000 mg PO DAILY 08/23/19 lisinopriL [Lisinopril] 10 mg PO DAILY 08/23/19 Aspirin Chewable [Aspirin Chewable*] 81 mg PO DAILY #30 tab.chew 08/24/19 Atorvastatin Calcium [Lipitor] 80 mg PO BEDTIME #30 tab 08/24/19 Clopidogrel Bisulfate [Plavix*] 75 mg PO DAILY #30 tablet 08/24/19 Metoprolol Succinate [Toprol Xl*] 25 mg PO DAILY #30 tab 08/24/19 Nitroglycerin [Nitrostat*] 1 tab.sl SL UD PRN #100 tab 08/24/19 New Medications: Aspirin Chewable [Aspirin Chewable*] 81 mg PO DAILY #30 tab.chew Atorvastatin Calcium [Lipitor] 80 mg PO BEDTIME #30 tab Nitroglycerin [Nitrostat*] 1 tab.sl SL UD PRN #100 tab PRN Reason: Pain Scale 2-4 (Mild) Clopidogrel Bisulfate [Plavix*] 75 mg PO DAILY #30 tablet Metoprolol Succinate [Toprol Xl*] 25 mg PO DAILY #30 tab Patient Discharge Instructions: OK TO DC IV AND DC HOME. FOLLOW-UP WITH PRIMARY CARE PROVIDER IN 1-2 WEEKS. FOLLOW-UP WITH CARDIOLOGY IN 1-2 WEEKS. RETURN TO THE ER IF symptoms worsen. CALL or TEXT DR. CHRISTIANSEN AT [phone] IF ANY QUESTIONS REGARDING HOSPITAL STAY. PLEASE CALL THE FLOOR AT [phone] IF ANY MEDICATION OR NURSING QUESTIONS. Diet: AHA Activity: Fall precautions Followup: hPoenix Torres MD [ACTIVE - CAN ADMIT] - 1-2 Weeks Conner Roth MD [OUTSIDE PHYSICIAN] - 1-2 Weeks Time spent managing pt's care (in minutes): 25
[2019-08-24 04:19] VITALS: TEMP 97.8
[2019-08-24 07:39] VITALS: BP 116/84
[2019-08-24] MEDS ORDERED: METOPROLOL XL 25 MG TAB PO SCH (09:00)
[2019-08-24] MEDS ORDERED: ASPIRIN 81 MG CHEWABLE TABLET PO SCH (09:00)
--- NOTE | 2019-08-24 17:11 | PN ---
Date of Progress Note: 08/24/2019 History Of Present Illness: Mr. Vázquez came in with non-ST elevation myocardial infarction yesterday , has history of hypertension, diabetes, and dyslipidemia. He was taken to the photo lab specialist urgently. Heather webb underwent a catheterization and primary stent of the proximal LAD. Overnight, he did very well. Heather webb has no complaint. Physical Examination: Vital Signs: Stable. He is afebrile. His chest was clear. Extremities: Revealed no clubbing, cyanosis, or edema. His right groin site is intact. Assessment And Plan: The patient will be going home today. He is status post acute non-ST elevation myocardial infarction status post LAD stent. He will be going home on his home medications plus Isha vix and metoprolol. His Lipitor that he takes at home was increased to 80 mg daily. He will see me in the office in the next 2 weeks. FRANK/KARO Voice ID: [id number] Report ID: [id number]
== END 2019-08-24 08:15 | disposition home or self-care (01) | DRG 247 ==
LOC: ER 19:42 → ERHOLD 21:26 → 3RD-ICU 23:40
PROVIDERS: ADMIT Hospitalist; ATTEND Hospitalist
PROC: 027034Z Dilation of Coronary Artery, One Artery with Drug-eluting Intraluminal Device, Percutaneous Approach (ICD-10-PCS; principal; 2019-08-23)
PROC: 4A023N7 Measurement of Cardiac Sampling and Pressure, Left Heart, Percutaneous Approach (ICD-10-PCS; 2019-08-23)
PROC: B2111ZZ Fluoroscopy of Multiple Coronary Arteries using Low Osmolar Contrast (ICD-10-PCS; 2019-08-23)
DX: I21.4 Non-ST elevation (NSTEMI) myocardial infarction (principal); E11.9 Type 2 diabetes mellitus without complications; I10 Essential (primary) hypertension; I25.10 Atherosclerotic heart disease of native coronary artery without angina pectoris; E78.5 Hyperlipidemia, unspecified; Z79.84 Long term (current) use of oral hypoglycemic drugs; Z79.899 Other long term (current) drug therapy; Z79.82 Long term (current) use of aspirin; Z82.49 Family history of ischemic heart disease and other diseases of the circulatory system
CPT/HCPCS: 36415; 71045; 80048; 80061; 80076; 82550; 83036; 83735; 83880; 84484; 85025; 85347; 85610; 92928; 93005; 93454; 96372; 96374; 99285; C1725; C1760; C1877; C1893; J0583; J1650; J2250; J3010; J7040

== ENCOUNTER 2024-08-19 21:48 | Emergency (ER) | payer BC, OTHER ==
--- NOTE | 2024-08-19 22:30 | RAD REPORT ---
EXAM: Chest Single View HISTORY: 48 years Male CHEST PAIN COMPARISON: 08/22/19 FINDINGS: LUNGS/PLEURA: The lungs are clear. No pleural effusions or pneumothorax. No pulmonary edema. CARDIAC/MEDIASTINUM: The cardiac silhouette is within normal limits. UPPER ABDOMEN: No significant abnormality. BONES: No acute abnormality. LINES/TUBES/OTHER: N/A IMPRESSION: No evidence of acute cardiopulmonary disease.
[2024-08-19] MEDS ORDERED: ASPIRIN 81 MG CHEWABLE TABLET ONE (23:07)
[2024-08-19 23:12] LABS: Absolute Basophils 0.1 K/uL (0-0.5); Absolute Eosinophils 0.2 K/uL (0-0.5); Absolute Lymphocytes (CBC) 1.8 K/uL (0.7-4.9); Absolute Monocytes 0.8 K/uL (0.1-1.3); Absolute Neutrophil 5.5 K/uL (1.8-8.0); Basophils % 0.6 % (0-1.3); Eosinophils % 2.5 % (0-4.4); Hematocrit 47.6 % (39.6-49.0); Hemoglobin 16.4 g/dL (13.6-17.9); MCHC 34.4 g/dL (32.0-36.0); MPV 8.4 fL (7.6-11.3); Monocytes % 9.1 % (3.3-12.3); Neutrophils % 65.8 % (41.7-73.7); Nucleated Red Blood Cells % 0.1 % (0-0); Platelets 182 thou/uL (152-406); RBC Red Blood Cell Count 5.29 M/uL (4.33-5.43); Red Cell Distribution Width 12.9 % (12.1-15.2)
[2024-08-19 23:27] LABS: Albumin 3.8 g/dL (3.4-5.0); Anion Gap 8.1 mEq/L (5.0-15.0); Bilirubin Direct 0.2 mg/dL (0-0.2); Bilirubin Indirect, Calculated 0.4 mg/dL (0.2-0.8); Bilirubin Total 0.6 mg/dL (0.2-1.0); Globulin 3.8 g/dL (2.3-3.5); Magnesium 2.3 mg/dL (1.6-2.4); Potassium 4.1 mEq/L (3.5-5.1); Protein, Total 7.6 g/dL (6.4-8.2); Troponin High Sensitivity 3.8 pg/mL (<58.9)
--- NOTE | 2024-08-20 01:06 | ER ---
Nurse's Notes [facility] Name: Aubrey Vázquez Age: 48 yrs Sex: Male : 1975 Arrival Date: 08/19/2024 Time: 21:48 Bed 6 Private MD: Diagnosis: Chest pain, unspecified;Essential (primary) hypertension Presentation: 08/19 22:10 Chief complaint: Patient states: chest pain X 90 minutes, radiates to left shoulder, hx iw of MA 5 years ago. Coronavirus screen: At this time, the client does not indicate any symptoms associated with coronavirus-19. Ebola Screen: No symptoms or risks identified at this time. Initial Sepsis Screen: Does the patient meet any 2 criteria? No. Patient's initial sepsis screen is negative. Does the patient have a suspected source of infection? No. Patient's initial sepsis screen is negative. Risk Assessment: Do you want to hurt yourself or someone else? Patient reports no desire to harm self or others. Onset of symptoms was August 19, 2024. 22:10 Acuity: KIYA 2 iw 22:10 Method Of Arrival: Ambulatory iw Historical: - Allergies: 22:11 No Known Allergies; iw - PMHx: 22:11 Diabetes - NIDDM; Hyperlipidemia; Hypertension; Myocardial infarction; iw - PSHx: 22:11 cardiac stents; iw - Immunization history:: Adult Immunizations unknown. - Infectious Disease History:: Denies. - Social history:: Smoking status: unknown. Screenin:29 [facility] ED Fall Risk Assessment (Adult) History of falling in the last 3 months, ha1 including since admission No falls in past 3 months (0 pts) Confusion or Disorientation No (0 pts) Intoxicated or Sedated No (0 pts) Impaired Gait No (0 pts) Mobility Assist Device Used No (0 pt) Altered Elimination No (0 pt) Score/Fall Risk Level 0 - 2 = Low Risk Oriented to surroundings, Maintained a safe environment, Educated pt \T\ family on fall prevention, incl call for assistance when getting out of bed, Hourly rounding (assess needs \T\ fall precautionary measures) done. Abuse screen: Denies threats or abuse. Denies injuries from another. Nutritional screening: No deficits noted. Tuberculosis screening: No symptoms or risk factors identified. Assessment: 22:30 General: Appears comfortable, Behavior is calm, cooperative. Pain: Complains of pain in ha1 chest Pain radiates to left arm Pain currently is 3 out of 10 on a pain scale. Quality of pain is described as pressure, Pain began suddenly. Cardiovascular: Reports chest pain, Heart tones S1 S2 present Rhythm is sinus tachycardia. Respiratory: Airway is patent Trachea midline Respiratory effort is even, unlabored, Respiratory pattern is regular, symmetrical. GI: Abdomen is round non-distended, obese. : No signs and/or symptoms were reported regarding the genitourinary system. 23:25 Reassessment: Patient and/or family updated on plan of care and expected duration. Pain rg5 level reassessed. Patient is alert, oriented x 3, equal unlabored respirations, skin warm/dry/pink. Patient states feeling better. 08/20 00:42 Reassessment: Patient and/or family updated on plan of care and expected duration. Pain rg5 level reassessed. Patient is alert, oriented x 3, equal unlabored respirations, skin warm/dry/pink. Patient states symptoms have improved. Vital Signs: 08/19 22:10 BP 129 / 91; Pulse 125; Resp 19; Temp 97.4; Pulse Ox 100% on R/A; Weight 97.52 kg; iw Height 5 ft. 10 in. ; Pain 3/10; 22:56 BP 147 / 91; Pulse 116; Resp 18 S; Pulse Ox 94% on R/A; ha1 08/20 00:00 BP 139 / 84; Pulse 112; Resp 18 S; Pulse Ox 95% on R/A; ha1 01:00 BP 125 / 67; Pulse 110; Resp 18; Pulse Ox 96% on R/A; ha1 08/19 22:10 Body Mass Index 30.85 (97.52 kg, 177.8 cm) iw 08/19 22:10 Pain Scale: Adult iw ED Course: 08/19 21:52 Patient arrived in ED. im 22:00 Shayne Mayes DO is Attending Physician. ms3 22:10 Patient has correct armband on for positive identification. Placed in gown. Bed in low ha1 position. Call light in reach. Side rails up X 1. Adult w/ patient. 22:10 Client placed on continuous cardiac and pulse oximetry monitoring. NIBP monitoring ha1 applied. environmental monitoring specialist on. 22:11 Triage completed. iw 22:12 Arm band placed on. Patient placed in waiting room. EKG completed in triage. Results iw shown to MD. 22:26 XRAY Chest (1 view) In Process Unspecified. EDMS 22:45 Inserted saline lock: 20 gauge in right antecubital area, using aseptic technique. ha1 Blood collected. Flushed with 10 mL NS. 22:53 Basic Metabolic Panel Sent. ha1 22:53 CBC with Diff Sent. ha1 22:53 LFT's Sent. ha1 22:53 Magnesium Sent. ha1 22:53 NT PRO-BNP Sent. ha1 22:53 Troponin HS Sent. ha1 23:02 Sarah Moser, RN is Primary Nurse. ha1 23:25 No provider procedures requiring assistance completed. Patient maintains SpO2 rg5 saturation greater than 95% on room air. 08/20 01:06 Kiran Piña MD is Referral Physician. ms3 01:31 IV discontinued, intact, bleeding controlled, No redness/swelling at site. Pressure ha1 dressing applied. Administered Medications: 08/19 23:29 Drug: Aspirin PO Chewable Tablet 324 mg PO once; 81 mg tablets x 4 Route: PO; ha1 08/20 00:00 Follow up: Response: No adverse reaction; Marked relief of symptoms; Pain is decreased ha1 Medication: 08/19 23:25 VIS not applicable for this client. rg5 Outcome: 08/20 01:06 Discharge ordered by . ms3 01:22 Condition: stable ha1 01:31 Discharged to home ambulatory, ha1 01:31 Discharge instructions given to patient, Instructed on discharge instructions, follow up and referral plans. Demonstrated understanding of instructions, follow-up care, 01:32 Patient left the ED. ha1 Signatures: Dispatcher [employer] Jaida José, RN RN Shayne Jackson DO DO ms3 Sarah Moser RN RN ha1 Paulina Thacker Rommel RN RN rg5
--- NOTE | 2024-08-20 01:07 | EDPHYS ---
Physician Documentation [facility] Name: Aubrey Vázquez Age: 48 yrs Sex: Male : 1975 Arrival Date: 08/19/2024 Time: 21:48 Bed 6 Private MD: ED Physician Shayne Mayes HPI: 08/19 22:08 This 48 yrs old Male presents to ER via Unassigned with complaints of Chest Pain, ms3 Shoulder Pain - Right. 22:08 48-year-old male with past medical history of myocardial infarction presents the [facility] [place] emergency department for left-sided chest pain that began 1-1 and half hours prior to arrival. Patient notes he did have an argument with his son nola. He also was shoveling stone without chest pain at that time. Patient denies nausea, vomiting, shortness of breath, fevers, chills, coughing.. Historical: - Allergies: 22:11 No Known Allergies; iw - PMHx: 22:11 Diabetes - NIDDM; Hyperlipidemia; Hypertension; Myocardial infarction; iw - PSHx: 22:11 cardiac stents; iw - Immunization history:: Adult Immunizations unknown. - Infectious Disease History:: Denies. - Social history:: Smoking status: unknown. ROS: 22:08 Constitutional: Negative for fever, and chills. Cardiovascular: Negative for chest ms3 pain, and palpitations. Respiratory: Negative for shortness of breath, cough, wheezing, and pleuritic chest pain, Abdomen/GI: Negative for abdominal pain, nausea, vomiting, diarrhea, and constipation, MS/Extremity: Negative for injury and deformity, Exam: 22:08 Constitutional: This is a well developed, well nourished patient who is awake, alert, ms3 and in no acute distress. Chest/axilla: Normal chest wall appearance and motion. Nontender with no deformity. Respiratory: Lungs have equal breath sounds bilaterally, clear to auscultation and percussion. No rales, rhonchi or wheezes noted. No increased work of breathing, no retractions or nasal flaring. Abdomen/GI: Soft, non-tender, with normal bowel sounds. No distension or tympany. No guarding or rebound. No evidence of tenderness throughout. Skin: Warm, dry with normal turgor. Normal color with no rashes, no lesions, and no evidence of cellulitis. MS/ Extremity: Pulses equal, no cyanosis. Neurovascular intact. Full, normal range of motion. 22:08 Cardiovascular: Rate: tachycardic, Rhythm: regular, Pulses: no pulse deficits are appreciated, Heart sounds: normal, normal S1and S2, 22:08 ECG was reviewed by the Attending Physician. Vital Signs: 22:10 BP 129 / 91; Pulse 125; Resp 19; Temp 97.4; Pulse Ox 100% on R/A; Weight 97.52 kg; iw Height 5 ft. 10 in. ; Pain 3/10; 22:56 BP 147 / 91; Pulse 116; Resp 18 S; Pulse Ox 94% on R/A; ha1 08/20 00:00 BP 139 / 84; Pulse 112; Resp 18 S; Pulse Ox 95% on R/A; ha1 01:00 BP 125 / 67; Pulse 110; Resp 18; Pulse Ox 96% on R/A; ha1 08/19 22:10 Body Mass Index 30.85 (97.52 kg, 177.8 cm) iw 08/19 22:10 Pain Scale: Adult iw MDM: 08/19 22:08 Medical Screening Exam initiated ms3 22:21 Differential diagnosis: abnormal EKG, acute myocardial infarction, anxiety, coronary ms3 artery disease chest wall pain. 08/20 03:22 HEART Score: History: Slightly Suspicious (0), ECG: Normal (0), Age: > 45 and < 65 ms3 years (1), Risk Factors: > or = 3 Risk factors for atherosclerotic disease (2), [Hypercholesterolemia] [Hypertension] [DM] Troponin: < or = 1 x Normal Limit (0), Total Score = 3. The patient was given aspirin in the Emergency Department. Data reviewed: vital signs, nurses notes, lab test result(s), EKG, radiologic studies, and as a result, I will discharge patient. Consideration of Admission/Observation Escalation of care including admission/observation considered. I considered the following discharge prescriptions or medication management in the emergency department Medications were administered in the Emergency Department. See MAR. Independent interpretation of the following test(s) in the Emergency Department EKG: See my EKG interpretation above. Counseling: I had a detailed discussion with the patient and/or guardian regarding the historical points, exam findings, and any diagnostic results supporting the discharge/admit diagnosis, lab results, radiology results, the need for outpatient follow up, to return to the emergency department if symptoms worsen or persist or if there are any questions or concerns that arise at home. Special discussion: Based on the patient's history, exam, and Dx evaluation, there is no indication for emergent intervention or inpatient Tx. It is understood by the patient/guardian that if the Sx's persist or worsen they need to return immediately for re-evaluation. ED course: Discussed labs, EKG, chest x-ray findings with patient and his . Patient's pain improved since arrival to the emergency department. Patient is speaking full sentences, alert and orient x 4, in no apparent distress, nontoxic-appearing. Patient states he is comfortable with discharge at this time. All questions were answered. 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 Return precautions discussed to include worsening symptoms, or any other concerns.. 08/19 22:01 Order name: Basic Metabolic Panel; Complete Time: 23:39 ms3 08/19 22:01 Order name: CBC with Diff; Complete Time: 23:39 ms3 08/19 22:01 Order name: LFT's; Complete Time: 23:39 ms3 08/19 22:01 Order name: Magnesium; Complete Time: 23:39 ms3 08/19 22:01 Order name: NT PRO-BNP; Complete Time: 23:39 ms3 08/19 22:01 Order name: Troponin HS; Complete Time: 23:39 ms3 08/19 22:08 Order name: D-Dimer; Complete Time: 23:39 ms3 08/19 23:40 Order name: Troponin High Sensitivity; Complete Time: 00:57 ms3 08/19 22:01 Order name: XRAY Chest (1 view); Complete Time: 22:32 ms3 08/19 22:01 Order name: EKG; Complete Time: 22:01 ms3 08/19 22:01 Order name: Cardiac monitoring; Complete Time: 22:53 ms3 08/19 22:01 Order name: EKG - Nurse/Tech; Complete Time: 22:12 ms3 08/19 22:01 Order name: IV Saline Lock; Complete Time: 22:53 ms3 08/19 22:01 Order name: Labs collected and sent; Complete Time: 22:53 ms3 08/19 22:01 Order name: O2 Per Protocol; Complete Time: 22:53 ms3 08/19 22:01 Order name: O2 Sat Monitoring; Complete Time: 22:53 ms3 EC/16 22:08 Rate is 126 beats/min. Rhythm is regular. Left axis deviation noted. UT interval is ms3 normal. QRS interval is normal. QT interval is normal. Clinical impression: Sinus tachycardia. Interpreted by me. Reviewed by me. Administered Medications: 23:29 Drug: Aspirin PO Chewable Tablet 324 mg PO once; 81 mg tablets x 4 Route: PO; ha1 08/20 00:00 Follow up: Response: No adverse reaction; Marked relief of symptoms; Pain is decreased ha1 Disposition Summary: 08/20/24 01:06 Discharge Ordered Notes: Location: Home ms3 Condition: Stable ms3 Diagnosis - Chest pain, unspecified ms3 - Essential (primary) hypertension ms3 Followup: ms3 - With: Kiran Piña MD - When: 2 - 3 days - Reason: Recheck today's complaints Discharge Instructions: - Discharge Summary Sheet ms3 - Nonspecific Chest Pain, Adult ms3 - Hypertension, Adult ms3 - DASH Eating Plan ms3 Forms: - Medication Reconciliation Form ms3 - Antibiotic Education ms3 - Prescription Opioid Use ms3 - Patient Portal Instructions ms3 - Leadership Thank You Letter ms3 Signatures: Dispatcher [employer] Jaida José, RN Shayne Figueroa DO DO ms3 Sarah Moser RN RN ha1 Patrick Maciel RN RN [id number] Corrections: (The following items were deleted from the chart) 08/19 22:01 22:01 BASIC METABOLIC PANEL+C.LAB.BRZ ordered. EDMS EDMS 22:01 22:01 CBC+H.LAB.BRZ ordered. EDMS EDMS 22:01 22:01 HEPATIC FUNCTION+C.LAB.BRZ ordered. EDMS EDMS 22:01 22:01 MAGNESIUM+C.LAB.BRZ ordered. EDMS EDMS 22:01 22:01 PROBNP+C.LAB.BRZ ordered. EDMS EDMS 22:01 22:01 Troponin High Sensitivity+C.LAB.BRZ ordered. EDMS EDMS 23:40 23:40 Troponin High Sensitivity+C.LAB.BRZ ordered. EDMS EDMS
[2024-08-20 01:49] VITALS: TEMP 97.4
[2024-08-20 01:54] VITALS: BP 125/67; O2SAT 96
== END 2024-08-20 01:32 | disposition home or self-care (01) ==
LOC: ER 21:48
DX: R07.9 Chest pain, unspecified (principal); I10 Essential (primary) hypertension; E78.5 Hyperlipidemia, unspecified; I25.2 Old myocardial infarction; Z95.818 Presence of other cardiac implants and grafts
CPT/HCPCS: 36415; 71045; 80048; 80076; 83735; 83880; 84484; 85025; 85379; 93005; 99284